=== PATIENT | male | born 1950 | race Caucasian/White ===

== ENCOUNTER 2016-04-08 11:44 | Outpatient (CLI) | payer MEDICARE ==
[~2016-04-08] VITALS: Ht 182.9 cm; Wt 1070.0 kg
--- NOTE | ~2016-04-08 | HEMODYNAMI ---
PATIENT:CURT KERN MEDICAL RECORD: [id number] : 54 LOCATION:[facility] ADMISSION DATE: 04/08/16 Generatedon:04/08/201614:23 Patient name: CURT KERN Patient #: [id number] SSN: D OB: 1950 Date of study: 04/08/2016 Page: Of Hemodynamic Procedure Report Patient Data Patient Demographics Procedure consent was obtained First Name: CURT Gender: Male Last Name: ERLIN : 1950 Middle Initial: BENIGNO Age: 65 year(s) Patient #: [id number] Race: Unknown Additional ID: [id number] Contact details [address]: [address] [place] [address] State: [place] City: [place] Zip code: [address] Admission Admission Data Admission Date: 04/08/2016 Admission Time: 11:44 Height (in.): 72 BSA: 2.28 (m2) Height (cm.): 182.88 BMI: 31.74 (kg/m2) Weight (lbs.): 234 Weight (kg.): 106.14 Lab Results Lab Result Date: 04/08/2016 Lab Result Time: 0:00 Biochemistry Name Units Result Min Max BUN mg/dl 11 --(-*--)-- 7 18 Creatinine mg/dl 0.9 --(-*--)-- 0.6 1.3 CBC Name Units Result Min Max Hemoglobin g/dl 13.4 -*(----)-- 13.5 17.5 Procedure Procedure Types Cath Procedure Diagnostic Procedure LHC LHC w/Coronaries Procedure Description Procedure Date Procedure Date: 04/08/2016 Procedure Start Time: 14:10 Procedure End Time: 14:23 Procedure Staff Name Function Chase Calderón MD Performing Physician Magaly Miner RT Scrub Alecia Marshall RN Nurse Nino Rae RN Fashion Coordinator Ike Ellis RT Monitor Procedure Data Cath Procedure Fluoroscopy Diagnostic fluoroscopy Total fluoroscopy Time: 3.3 time: 3.3 min min Diagnostic fluoroscopy Total fluoroscopy dose: dose: 313.67 mGy 313.67 mGy Contrast Material Contrast Material Type Amount (ml) Isovue 300 71 Entry Location Entry Primary Successful Side Size Upsize Upsize Entry Closure Villalpando ccessful Closure Location (Fr) 1 (Fr) 2 (Fr) Remarks Device Remarks Radial Right 6 Fr Mechanical artery Short Compression Estimated blood loss: 10 ml Diagnostic catheters Device Type Used For End Catheter Placement Terumo 5Fr Yonatan 110cm Coronary catheter Angiography Procedure Complications No complications Procedure Medications Medication Administration Route Dosage Oxygen NC 2 l/min Benadryl I.V. 50 mg Lidocaine 2% added to field 20 Heparin Flush Bag added to field 2 bags (1000units/500ml NS) 0.9% NaCl I.V. 100 ml/hr Versed I.V. 1 mg Fentanyl I.V. 50 mcg Versed I.V. 1 mg Fentanyl I.V. 50 mcg Radial Cocktail I.A. 1 syringe (Verapomil 2mg/Nitro 400mcg/Heparin 1500units) Versed I.V. 1 mg Fentanyl I.V. 50 mcg Hemodynamics Rest BSA: 2.28 (m2) HGB: 13.4 (g/dl) O2 Consumption: Estimated: 271.86 (ml/min) O2 Co nsumption indexed: Estimated:119.24 (ml/min/m) Heart Rate: 76 (bpm) Pressure Samples Time Site Value (mmHg) Purpose Heart Use Rate(bpm) 14:14 LV 109/0,9 Snapshot 67 14:15 AO 88/50(68) Pullback 60 14:15 LV 106/10,16 Pullback 60 14:18 AO 93/64(78) Snapshot 85 Gradients Valve Time Site 1 Site 2 Mean SEP/DFP Peak To Heart Use (mmHg) (sec/min) Peak Rate (mmHg) (bpm) Aortic 14:15 LV AO 10 8 18 60 106/10,16 88/50(68) Calculations Valve P-P Mean Valve Index Valve Source Name Gradient Area Flow (cm2) Aortic 18 10 18 10 Snapshots Pre Cath Intra NCS Post Cath Vital Signs Time Heart Resp SPO2 NIBP (mmHg) Rhythm Pain Sedation Rate (ipm) (%) Status Level (bpm) 13:59:28 33 17 94 130/84(115) NSR 0 (11) 10(A) , No pain 14:03:52 63 17 95 130/80(108) NSR 0 (11) 10(A) , No pain 14:08:17 59 19 96 121/73(93) NSR 0 (11) 10(A) , No pain 14:12:31 36 17 95 122/83(104) NSR 0 (11) 9(A) , No pain 14:16:55 37 16 95 125/69(79) NSR 0 (11) 9(A) , No pain 14:21:17 41 19 94 111/69(85) NSR 0 (11) 10(A) , No pain Medications Time Medication Route Dose Verified Delivered Reason Notes Effectiveness by by 13:59:31 Oxygen NC 2 l/min Chase Santosie used for [facility]. Betito Marshall RN procedure 13:59:37 Benadryl I.V. 50 mg Chase Santosie used for [facility] Betito Marshall RN procedure 13:59:47 Lidocaine 2% added 20ml Chase Chase for local to vial [facility] anesthetic field MD VALENTINE 13:59:53 Heparin Flush added 2 bags Chase Chase used for Bag to [facility] procedure (1000units/500ml field MD VALENTINE NS) 14:00:03 0.9% NaCl I.V. 100 Chase Buffie Per ml/hr [facility] Betito Marshall RN physician 14:02:47 Versed I.V. 1 mg Chase Buffie for sedation [facility] Betito Marshall RN, MD 14:02:53 Fentanyl I.V. 50 mcg Chase Buffie for sedation [facility]. Betito Marshall RN, MD 14:10:25 Versed I.V. 1 mg Hcase Buffie for sedation [facility] Betito Marshall RN, MD 14:10:29 Fentanyl I.V. 50 mcg Chase Buffie for sedation [facility] Betito Marshall RN, MD 14:13:31 Radial Cocktail I.A. 1 Chase Chase for (Verapomil syringe [facility] vasodilation 2mg/Nitro MD VALENTINE 400mcg/Heparin 1500units) 14:16:39 Versed I.V. 1 mg Chase Buffie for sedation [facility]. Betito Marshall RN, MD 14:16:44 Fentanyl I.V. 50 mcg Chase Santosie for sedation [facility] Betito Marshall RN, MD Procedure Log Time Note 13:20:06 Nino Rae RN sent for patient. Start room use. 13:44:44 Diagnostic Cath Status : Elective 13:45:12 Time tracking: Regular hours 13:45:15 Plan of Care:Hemodynamics will remain stable., Cardiac rhythm will remain stable., Comfort level will be maintained., Respiratory function will remain adequate., Patient/ family verbilizes understanding of procedure., Procedure tolerated without complication., Recovers from procedure without complications.. 13:46:06 Patient received from Outpatients to [facility] 2 Alert and oriented. Tansferred to table in Supine position. 13:48:12 Warm blankets applied, and zulay hugger turned on for patient comfort. 13:48:12 Correct patient and procedure confirmed by team. 13:48:13 Signed procedure consent form obtained from patient. 13:48:14 ECG and BP/O2 sat monitors applied to patient. 13:58:16 Vital chart was started 13:58:17 Baseline sample Acquired. 13:58:21 Rhythm: sinus rhythm 13:58:23 Full Disclosure recording started 13:59:27 H&P Date Dictated: 03/10/2016 Within 30 days and on chart., H&P Addendum completed by physician on day of procedure. (MUST COMPLETE FOR ALL OUTPATIENTS). 13:59:28 Pre-procedure instructions explained to patient. 13:59:29 Pre-op teaching completed and patient verbalized understanding. 13:59:30 Family in waiting room. 13:59:31 Oxygen 2 l/min NC was given by Alecia Marshall RN; used for procedure; 13:59:32 Patient NPO since Midnight. 13:59:35 Is the patient allergic to Iodine/contrast media? No. 13:59:37 Benadryl 50 mg I.V. was given by Alecia Marshall RN; used for procedure; 13:59:43 Is patient on blood thinner?No 13:59:47 Lidocaine 2% 20ml vial added to field was given by Chase Calderón MD; for local anesthetic; 13:59:52 ACC The patient was administered the following blood thiners within the last 24 hours: None 13:59:53 Heparin Flush Bag (1000units/500ml NS) 2 bags added to field was given by Chase Calderón MD; used for procedure; 13:59:56 Patient diabetic? Yes. 13:59:57 If diabetic: On Metformin? Yes 14:00:00 If on Metformin: Last Dose? 04/06/2016 14:00:03 0.9% NaCl 100 ml/hr I.V. was given by Alecia Marshall RN; Per physician; 14:00:04 Previous problem with sedation/anesthesia? No ? 14:00:05 Snore? Yes 14:00:10 Sleep apnea? No 14:00:11 Deviated septum? No 14:00:12 Opens mouth fully? Yes 14:00:13 Sticks out tongue? Yes 14:00:15 Airway obstruction? No ? 14:00:18 Dentures? No ? 14:00:21 Pre procedure: right dorsailis pedis pulse 1+ Palpable, but thready & weak; easily obliterated 14:00:24 Modified Jasiel's test Ulnar < 7 seconds 14:00:26 Patient pain scale 0/10 ?. 14:00:32 IV patent on arrival in left forearm with 0.9% NaCl at [facility]. 14:00:34 Lab results completed and on chart. 14:00:39 Right Radial & Right Groin area was prepped with chlora-prep and draped in sterile fashion 14:00:41 Alarms reviewed by R. N. 14:00:42 Sharps counted by scrub and verified by R.N. 14:00:44 --------ALL STOP TIME OUT------ 14:00:44 Final Timeout: patient, procedure, and site verified with staff and physician. All members of the team are in agreement. 14:00:50 Right Radial & Right Groin site verified by team. 14:01:01 Physical assessment completed. ASA score P 2 - A patient with mild systemic disease as per Chase Calderón MD. 14:01:03 Sedation plan: IV Moderate Sedation Versed, Fentanyl 14:01:55 Use device set Radial Dx 14:01:56 Tegaderm 4 x 4 opened to sterile field. 14:01:57 Acist Manifold opened to sterile field. 14:01:57 Acist Hand Control opened to sterile field. 14:01:59 Acist Syringe opened to sterile field. 14:01:59 Cardinal Cath Pack opened to sterile field. 14:01:59 Bag Decanter opened to sterile field. 14:02:00 Terumo 6Fr Slender Glidesheath opened to sterile field. 14:02:01 St Tian 260cm J .035 wire opened to sterile field. 14:02:47 Versed 1 mg I.V. was given by Alecia Marshall RN; for sedation; 14::53 Fentanyl 50 mcg I.V. was given by Alecia Marshall RN; for sedation; 14::46 Lab Result : BUN 11 mg/dl 14::46 Lab Result : Hemoglobin 13.4 g/dl 14::46 Lab Result : Creatinine 0.9 mg/dl 14::49 Zero performed for pressure channel P1 14::52 Zero performed for pressure channel P1 14::57 Zero performed for pressure channel P1 14:08:00 Zero performed for pressure channel P1 14::19 Procedure started. 14:: Versed 1 mg I.V. was given by Alecia Marshall RN; for sedation; 14:: Local anesthetic to right radial artery with Lidocaine 2% by Chase Calderón MD.INITIAL ACCESS ONLY 14::29 Fentanyl 50 mcg I.V. was given by Alecia Marshall RN; for sedation; 14::49 Patient Height : 182.88 cm 14:10:50 Patient Weight : 106.14 kg 14:11:00 ACC Patient presents with Stable Angina CCS Anginal Class 2--Slight limitation of ordinary activity. 14:11:50 ACCPatient has been prescribed/administered the following anti-anginal medication within the last 2 weeks: Calcium Channel Blockers, TERRIE-Inhibitor 14:12:10 A 6 Fr Short sheath was inserted into the Right Radial artery 14:12:29 A Ripstone 5Fr Yonatan 110cm catheter was advanced over the wire and used for Coronary Angiography. 14:13:31 Radial Cocktail (Verapomil 2mg/Nitro 400mcg/Heparin 1500units) 1 syringe I.A. was given by Chase Calderón MD; for vasodilation; 14:14:06 LV angiography performed. 14:14:07 LV gram done using JEROME 14:14:12 LV hemodynamics recorded. 14:14:17 Injector settings: Ml/sec: 7, Volume: 15, 14:14:42 EF : 55 % 14:15:38 RCA angiography performed. 14:16:39 Versed 1 mg I.V. was given by Alecia Marshall RN; for sedation; 14:16:44 Fentanyl 50 mcg I.V. was given by Alecia Marshall RN; for sedation; 14:17:30 LCA angiography performed. 14:18:43 Catheter removed. 14:18:50 Terumo TR Band Standard opened to sterile field. 14:19:00 Contrast amount:Isovue 300 71ml. 14:19:19 Procedure ended.(Physican Out) 14:19:21 Sheath removed intact; hemostasis achieved with Mechanical Compression to the Right Radial artery. 14:19:25 TR band inflated with 12cc of air. 14:19:26 Insertion/operative site no bleeding no hematoma. 14:19:29 Post Procedure Pulses reassessed and unchanged 14:19:33 Post-procedure physical assessment completed. ASA score P 2 - A patient with mild systemic disease as per Chase Calderón MD. 14:19:34 Post procedure rhythm: unchanged. 14:19:36 Estimated blood loss: 10 ml 14:19:38 Post procedure instruction explained to patient.Patient verbalizes understanding. 14:19:39 Patient needs reinforcement of post procedure teaching. 14:19:45 Procedure Complication : No complications 14:20:00 Procedure and supply charges have been captured, reviewed, submitted and are correct. 14:21:29 Fluoroscopy time 03.30 minutes. 14:21:34 Fluoroscopy dose: 313.67 mGy 14:21:34 Flurop Dose total: 313.67 14:21:36 Sharps counted by scrub and verified by R.N. 14:23:14 Vital chart was stopped 14:23:14 See physician's report for complete and final results. 14:23:17 Report given to Outpatients. 14:23:19 Patient transfered to Outpatients with Stretcher. 14:23:21 Procedure ended. 14:23:21 Full Disclosure recording stopped 14:23:26 End room use (Document Last) Device Usage Item Name Manufacture Quantity Catalog Hospital Part Current Minimal Lot# / Number Charge Number Stock Stock Serial# Code Tegaderm 4 3M 1 [id number] 872691 026418 5 x 4 Acist Acist 1 82878 460464 618734 038751 5 [employer] Warrant[employer] Acist Hand Acist 1 79693 468059 505417 124273 5 TechDevils Acist Acist 1 61012 246063 744938 051232 20 Syringe [employer] Cardinal Cardinal 1 [id number] 407195 79046 503270 5 Cath Pack Health Bag Microtek 1 2002S 470103 90378 451221 5 [employer]an[employer]. Terumo 6Fr Terumo 1 [id number] 593665 947696 026640 [address] St Tian 1 950951 448288 729955 764024 30 260cm J .035 wire Terumo 5Fr Terumo 1 40-4607 018696 849926 103669 5 Yonatan 110cm catheter Terumo TR Terumo 1 [id number] 210108 551221 998073 40 Band Standard Signature Audit Vancleave Stage Time Signature Unsigned Intra-Procedure 04/08/2016 Ike Ellis 2:23:43 PM RT(R) Signatures Monitor : Ike Ellis RT Signature : Date : Time : [id number] [place] [address]
[2016-04-08 12:52] LABS: BASOPHILS 0.4 % (0.0-2.0); EOSINOPHILS 2.7 % (0-7); HEMATOCRIT 38.8 % (42.0-54.0); HEMOGLOBIN 13.4 g/dL (13.5-17.5); IMMATURE GRANULOCYTES 0.2 % (0-5); MCH 34.2 pg (26.0-34.0); MCHC 34.5 g/dL (31.0-37.0); MEAN PLATELET VOLUME 11.3 fL (7.4-10.4); MONOCYTES 11.8 % (2-11); NEUTROPHILS 43.9 % (40-80); PLATELET COUNT 151 10x3/uL (130-400); RBC 3.92 10x6/uL (4.20-6.10); RDW 13.1 % (11.5-14.5); WBC 4.8 10x3/uL (4.8-10.8)
[2016-04-08] MEDS ORDERED: ZANAFLEX4 MG PO (13:05)
[2016-04-08] MEDS ORDERED: VITAMIN B-122500 MCG PO (13:06)
[2016-04-08] MEDS ORDERED: GLUCOPHAGE1000 MG PO (13:06)
[2016-04-08] MEDS ORDERED: BAYER CHEWABLE81 MG PO (13:06)
[2016-04-08] MEDS ORDERED: PRINIVIL20 MG PO (13:07)
[2016-04-08] MEDS ORDERED: OMEPRAZOLE20 M1 PO (13:07)
[2016-04-08] MEDS ORDERED: VITAMIN D31000 UNIT PO (13:08)
[2016-04-08] MEDS ORDERED: NORVASC5 MG PO (13:08)
[2016-04-08 13:10] VITALS: Ht 182.9 cm; Wt 1070.0 kg
[2016-04-08 13:18] LABS: CALC OSMOLALITY 279 mosm/kg (275-300); CHLORIDE - SERUM 104 mmol/L (98-107); CREATININE - SERUM 0.9 mg/dL (0.6-1.3); GLUCOSE 157 mg/dL (74-106); POTASSIUM - SERUM 3.9 mmol/L (3.5-5.1); SODIUM 139 mmol/L (136-145); UREA NITROGEN 11 mg/dL (7-18); eGFR NON AFRICAN AMERICAN > 90 mL/min (90-120)
--- NOTE | 2016-04-08 15:34 | NUR ---
1445 AWAKE, TALKING WITH FAMILY AT BEDSIDE. RATE 84 W PVC/PAC AND BUNDLE BRANCH BLOCK...(BASELINE FOR PATIENT AND REASON FOR CATH). ROOM AIR WITH NO DISTRESS. R WRIST TR BAND C/D/I WITH NO HEMATOMA OR BLEEDING. PULSES PALP X 4. FAMILY AT BEDSIDE. 1530 SITTING UP IN BED EATING TURKEY SANDWICH, HEART RATE CONTINUES NOTED EARLIER. R WRIST TR BAND C/D/I WITH NO HEMATOMA OR BLEEDING. FAMILY AT BEDSIDE.
--- NOTE | 2016-04-08 16:05 | NUR ---
PIV REMOVED FROM LEFT FOREARM WITH BANDAID APPLIED. 4CC AIR REMOVED FROM R WRIST TR BAND WITH NO BLEEDING. WILL MONITOR CLOSELY. UP TO BEDSIDE TO DRESS WITH ASSIST FROM .
--- NOTE | 2016-04-08 16:17 | NUR ---
REMAINDER OF AIR REMOVED FROM R WRIST TR BAND. TR BAND REMOVED AND DRESSED WITH TEGADERM. D/C INSTRUCTIONS DISCUSSED WITH PATIENT AND AT BEDSIDE. DISCUSSED HOLDING METFORMIN FOR 48HRS AFTER PROCEDURE. WHEELED DOWN VIA WHEELCHAIR BY LOCKER ROOM ATTENDANT TEAM.
--- NOTE | 2016-04-12 14:09 | OP ---
PATIENT NAME: CURT KERN MEDICAL RECORD: [id number] :54 LOCATION:D.CAT ADMISSION DATE: SURGEON: JATINDER WOLFE MD DATE OF OPERATION: 04/08/2016 PROCEDURE: Left heart catheterization, selective coronary angiography, right radial artery approach. CATHETERS: A 5-Irish sheath, 5/4 left and right Shweta, 5/4 pig. The procedure was well tolerated. The patient returned to the anderson. Sheath was removed. TR band was placed. FINDINGS: Left ventriculography in 30-degree JEROME view: Normal wall motion, normal systolic function. CORONARY ANATOMY: Left main: Left main is free of disease. LAD: Free of disease in the diagonal system. CIRCUMFLEX: Free of disease in the marginal system. RIGHT CORONARY ARTERY: Dominant artery, gives rise to PDA, free of disease. IMPRESSION: Normal left ventricular systolic function. Normal coronary anatomy. TRANSINT:[id number] Voice Confirmation ID: [id number] DOCUMENT ID: [id number] JATINDER WOLFE MD at 1409 CC: [id number] DICTATION DATE: 04/08/16 1425 CONDOMINIUM MANAGER: 04/08/16 1701 DEP CLI 04/08/16 [id number] [place] [address]
== END 2016-04-08 16:19 | disposition home or self-care (01) ==
LOC: D.CATH 11:44
PROVIDERS: Internal Medicine Interventional Cardiology
DX: I20.9 Angina pectoris, unspecified (principal); R94.39 Abnormal result of other cardiovascular function study

== ENCOUNTER → 2016-07-12 09:40 | Outpatient (CLI) | payer MEDICARE ==
[~2016-07-12 09:40] MED LIST: BAYER CHEWABLE81 MG PO; GLUCOPHAGE1000 MG PO; NORVASC5 MG PO; OMEPRAZOLE20 M1 PO; PRINIVIL20 MG PO; VITAMIN B-122500 MCG PO; VITAMIN D31000 UNIT PO; ZANAFLEX4 MG PO
== END | disposition home or self-care (01) ==
LOC: D.CT 09:40
DX: R51 Headache (principal)

== ENCOUNTER → 2017-06-01 09:48 | Outpatient (CLI) | payer OTHER ==
[2016-04-08 13:10] VITALS: BMI 320.2
== END | disposition home or self-care (01) ==
LOC: D.RAD 09:48
DX: Z02.71 Encounter for disability determination (principal)

== ENCOUNTER → 2017-10-21 12:41 | Outpatient (CLI) | payer MEDICARE, BC ==
[2016-04-08 13:10] VITALS: BMI 320.2
[~2017-10-21 12:41] MED LIST changes: +BACLOFEN10 MG PO; +BETAPACE 80 MG80 MG PO; +BRILINTA90 MG PO; +COZAAR50 MG PO; +ELIQUIS5 MG PO; +FUROSEMIDE40 MG PO; +K-TAB10 MEQ PO; +PRAVASTATIN SOD10 MG PO
== END | disposition home or self-care (01) ==
LOC: D.CT 12:41
DX: R06.00 Dyspnea, unspecified (principal)

== ENCOUNTER 2017-11-22 10:47 | Outpatient (CLI) | payer MEDICARE, BC ==
[~2017-11-22] VITALS: Ht 182.9 cm; Wt 106.8 kg
--- NOTE | ~2017-11-22 | HEMODYNAMI ---
PATIENT:CURT KERN MEDICAL RECORD: [id number] : 54 LOCATION:[facility] ADMISSION DATE: 11/22/17 Generatedon:11/22/201714:27 Patient name: CURT KERN Patient #: [id number] SSN: D OB: 1950 Date of study: 11/22/2017 Page: Of Hemodynamic Procedure Report Patient Data Patient Demographics Procedure consent was obtained First Name: CURT Gender: Male Last Name: ERLIN : 1950 Middle Initial: BENIGNO Age: 67 year(s) Patient #: [id number] Race: Unknown Additional ID: [id number] Contact details Address: [address] [place] [address] State: [place] City: [place] Zip code: [address] Past Medical History Allergies: No known allergies Admission Admission Data Admission Date: 11/22/2017 Admission Time: 10:47 Height (in.): 6 BSA: 0.38 (m2) Height (cm.): 15.24 BMI: 4609.01 (kg/m2) Weight (lbs.): 236 Weight (kg.): 107.05 Lab Results Lab Result Date: 11/22/2017 Lab Result Time: 0:00 Biochemistry Name Units Result Min Max BUN mg/dl 15 --(--*-)-- 7 18 Creatinine mg/dl 1.1 --(--*-)-- 0.6 1.3 CBC Name Units Result Min Max Hemoglobin g/dl 14.4 --(*---)-- 13.5 17.5 Procedure Procedure Types Cath Procedure Diagnostic Procedure C [facility] w/Coronaries Sedation Charges Moderate Sedation up to 30 minutes PCI Procedure Coronary Stent Coronary Stent Initial Procedure Description Procedure Date Procedure Date: 11/22/2017 Procedure Start Time: 13:54 Procedure End Time: 14:27 Procedure Staff Name Function Chase Bravo MD Performing Physician Yane Glez RT Monitor Magaly Miner RT Scrub Alecia Marshall RN Nurse Procedure Data Cath Procedure Fluoroscopy Diagnostic fluoroscopy Total fluoroscopy Time: time: 11.2 min 11.2 min Diagnostic fluoroscopy Total fluoroscopy dose: dose: 1802 mGy 1802 mGy Contrast Material Contrast Material Type Amount (ml) Isovue 300 123 Entry Location Entry Primary Successful Side Size Upsize Upsize Entry Closure [place] ccessful Closure Location (Fr) 1 (Fr) 2 (Fr) Remarks Device Remarks Radial Right 6 Fr Mechanical artery Short Compression Estimated blood loss: 10 ml Diagnostic catheters Device Type Used For End Catheter Placement DIAGNOSTIC [place] 110cm 5 LV Angiography Fr catheter ([id number]) DIAGNOSTIC [place] 110cm 5 Left Coronary Fr catheter ([id number]) Angiography DIAGNOSTIC [place] 110cm 5 LV Angiography Fr catheter ([id number]) DIAGNOSTIC AR 1 MOD 5Fr Right Coronary catheter ([id number]) Angiography Procedure Complications No complications Procedure Medications Medication Administration Route Dosage Oxygen etCO2 Nasal cannula 2 l/min Lidocaine 2% added to field 20 Heparin Flush Bag added to field 2 bags (1000units/500ml NS) 0.9% NaCl I.V. 100 ml/hr Versed I.V. 2 mg Fentanyl I.V. 100 mcg Radial Cocktail I.A. 1 syringe (Verapomil 2mg/Nitro 400mcg/Heparin 1500units) Versed I.V. 1 mg Fentanyl I.V. 50 mcg Heparin Bolus I.V. 4000 units Integrilin (Bolus I.V. 9.5 ml 2mg/ml) Versed I.V. 1 mg Fentanyl I.V. 50 mcg Brilinta P.O. 180 mg Hemodynamics Rest BSA: 0.38 (m2) HGB: 14.4 (g/dl) O2 Consumption: Estimated: 43.28 (ml/min) O2 Con sumption indexed: Estimated:113.89 (ml/min/m) Heart Rate: 63 (bpm) Pressure Samples Time Site Value (mmHg) Purpose Heart Use Rate(bpm) 14:02 LV 83/8,14 Snapshot 74 Gradients Valve Time Site Site Mean SEP/DFP Peak To Heart Use 1 2 (mmHg) (sec/min) Peak Rate (mmHg) (bpm) Aortic 14:02 LV AO 83 Snapshots Pre Cath Intra NCS Post Cath Vital Signs Time Heart Resp SPO2 NIBP Rhythm Pain Sedation Rate (ipm) (%) (mmHg) Status Level (bpm) 13:31:30 77 30 95 125/81(96) A-Fib 0 (11) 10(A) , No pain 13:35:44 83 14 93 116/70(87) A-Fib 0 (11) 10(A) , No pain 13:39:54 90 21 94 110/71(84) A-Fib 0 (11) 10(A) , No pain 13:44:04 88 19 93 109/67(80) A-Fib 0 (11) 10(A) , No pain 13:48:10 75 17 94 106/74(87) A-Fib 0 (11) 10(A) , No pain 13:52:14 70 18 92 102/78(86) A-Fib 0 (11) 10(A) , No pain 13:56:18 90 12 93 96/67(74) A-Fib 0 (11) 10(A) , No pain 14:00:25 77 13 91 100/53(77) A-Fib 0 (11) 9(A) , No pain 14:04:31 69 20 93 101/60(84) A-Fib 0 (11) 9(A) , No pain 14:08:39 88 16 92 94/58(80) A-Fib 0 (11) 9(A) , No pain 14:12:45 90 17 92 89/56(67) A-Fib 0 (11) 9(A) , No pain 14:16:44 100 18 93 104/69(91) A-Fib 0 (11) 9(A) , No pain 14:20:52 87 16 93 116/60(87) A-Fib 0 (11) 9(A) , No pain 14:25:00 77 26 94 92/79(86) A-Fib 0 (11) 10(A) , No pain Medications Time Medication Route Dose Verified Delivered Reason Not es Effectiveness by by 13:38:59 Oxygen etCO2 2 l/min Chase Alston [facility] 13:39:07 Lidocaine 2% added 20ml Chase Stone for local to vial [facility] anesthetic field MD VALENTINE 13:39:13 Heparin Flush added 2 bags Chase Stone used for Bag to [facility] procedure (1000units/500ml field MD VALENTINE NS) 13:39:22 0.9% NaCl I.V. 100 Chase Alston Per physician ml/hr St Betito Marshall RN, MD 13:42:24 Versed I.V. 2 mg Chase Santosie for sedation St Betito Marshall RN, MD 13:42:30 Fentanyl I.V. 100 mcg Chase Santosie for sedation St Betito Marshall RN, MD 13:59:40 Radial Cocktail I.A. 1 Chase Stone for (Verapomil syringe St Betito Bravo vasodilation 2mg/Nitro MD VALENTINE 400mcg/Heparin 1500units) 13:59:48 Versed I.V. 1 mg Chase Alston for sedation St Betito Marshall RN, MD 13:59:52 Fentanyl I.V. 50 mcg Chase Alston for sedation St Betito Marshall RN, MD 14:05:44 Heparin Bolus I.V. 4000 Chase Alston for KEN IFIED units St Betito Marshall RN anticoagulation WITH DR MD KOEHLER 14:06:52 Integrilin I.V. 9.5 ml Chase Alston for WAS DALILA (Bolus 2mg/ml) St Betito Marshall RN antiplatelet 0.5 ML MD therapy OF VIAL 14:11:33 Versed I.V. 1 mg Chase Alston for sedation St Betito Marshall RN, MD 14:11:37 Fentanyl I.V. 50 mcg Chase Alston for sedation St Betito Marshall RN, MD 14:23:09 Brilinta P.O. 180 mg Chase Alston for St Betito Marshall RN antiplatelet therapy Procedure Log Time Note 13:18:42 Time tracking: Regular hours (M-F 7:00 - 5:00) 13:18:45 Plan of Care:Hemodynamics will remain stable., Cardiac rhythm will remain stable., Comfort level will be maintained., Respiratory function will remain adequate., Patient/ family verbilizes understanding of procedure., Procedure tolerated without complication., Recovers from procedure without complications.. 13:18:48 Alecia Marshall RN sent for patient. Start room use. 13:18:49 Signed procedure consent form obtained from patient. 13:18:57 H&P Date Dictated: 10/27/2017 Within 30 days and on chart., H&P Addendum completed by physician on day of procedure. (MUST COMPLETE FOR ALL OUTPATIENTS). 13:19:02 Patient allergic to No known allergies 13:25:20 Patient received from Pre/Post Procedure Room to CCL 2 Alert and oriented. Tansferred to table in Supine position. 13:25:21 Warm blankets applied, and zulay hugger turned on for patient comfort. 13:25:22 Correct patient and procedure confirmed by team. 13:25:23 ECG and BP/O2 sat monitors applied to patient. 13:30:27 Vital chart was started 13:33:40 Baseline sample Acquired. 13:33:51 Rhythm: atrial fibrillation 13:33:52 Full Disclosure recording started 13:33:53 Pre-procedure instructions explained to patient. 13:33:54 Pre-op teaching completed and patient verbalized understanding. 13:33:57 Family in patients room. 13:33:59 Patient NPO since Midnight. 13:34:02 Is the patient allergic to Iodine/contrast media? No. 13:34:04 Is patient on blood thinner?Yes 13:35:22 RAMA HURTADO 11.21 13:35:24 Patient diabetic? Yes. 13:35:26 If diabetic: On Metformin? Yes 13:35:28 If on Metformin: Last Dose? 11/21/2017 13:35:38 Previous problem with sedation/anesthesia? No ? 13:35:40 Snore? No 13:35:41 Sleep apnea? No 13:35:43 Deviated septum? No 13:35:43 Opens mouth fully? Yes 13:35:45 Sticks out tongue? Yes 13:35:47 Airway obstruction? No ? 13:35:49 Dentures? No ? 13:35:51 Modified Jasiel's test Ulnar < 7 seconds 13:35:55 Patient pain scale 0/10 ?. 13:35:59 IV patent on arrival in left hand with 0.9% NaCl at O. 13:37:04 Lab Result : BUN 15 mg/dl 13:37:04 Lab Result : Hemoglobin 14.4 g/dl 13:37:04 Lab Result : Creatinine 1.1 mg/dl 13:37:06 Lab results completed and on chart. 13:37:09 Right Radial & Right Groin area was prepped with chlora-prep and draped in sterile fashion 13:37:15 Alarms reviewed by R. N. 13:37:15 Sharps counted by scrub and verified by R.N. 13:37:18 Use device set Radial Dx or PCI 13:37:19 ACIST Syringe (88791) opened to sterile field. 13:37:20 Bag Decanter (2001S) opened to sterile field. 13:37:21 ACIST Hand Control (62517) opened to sterile field. 13:37:22 ACIST Manifold (95732) opened to sterile field. 13:37:22 Tegaderm 4 x 4 (1626W) opened to sterile field. 13:37:23 Medline Cath Pack ([id number]) opened to sterile field. 13:37:24 DIAGNOSTIC WIRE .035 260cm J wire (584310) opened to sterile field. 13:37:25 MBrace Wrist Support ([id number]) opened to sterile field. 13:37:26 SHEATH 6Fr Prelude Radial ([id number]) opened to sterile field. 13:38:59 Oxygen 2 l/min etCO2 Nasal cannula was administered by Alecia Marshall RN; used for procedure; 13:39:07 Lidocaine 2% 20ml vial added to field was administered by Chase Bravo MD; for local anesthetic; 13:39:13 Heparin Flush Bag (1000units/500ml NS) 2 bags added to field was administered by Chase Bravo MD; used for procedure; 13:39:22 0.9% NaCl 100 ml/hr I.V. was administered by Alecia Marshall RN; Per physician; 13:41:10 --------ALL STOP TIME OUT------ 13:41:10 Final Timeout: patient, procedure, and site verified with staff and physician. All members of the team are in agreement. 13:41:13 Right Radial & Right Groin site verified by team. 13:41:15 Physical assessment completed. ASA score P 2 - A patient with mild systemic disease as per Chase Bravo MD. 13:41:19 Sedation plan: IV Moderate Sedation Medication:Versed, Fentanyl 13:42:24 Versed 2 mg I.V. was administered by Alecia Marshall RN; for sedation; 13:42:30 Fentanyl 100 mcg I.V. was administered by Alecia Marshall RN; for sedation; 13:46:12 Zero performed for pressure channel P1 13:49:36 Patient Height : 6 inches 13:49:41 Patient Weight : 236 lbs 13:54:21 Procedure started. 13:54:27 Local anesthetic to right radial artery with Lidocaine 2% by Chase Bravo MD.INITIAL ACCESS ONLY 13:57:19 A 6 Fr Short sheath was inserted into the Right Radial artery 13:58:00 A DIAGNOSTIC [place] 110cm 5 Fr catheter ([id number]) was advanced over the wire and used for LV Angiography. UNABLE TO CROSS VALVE 13:59:40 Radial Cocktail (Verapomil 2mg/Nitro 400mcg/Heparin 1500units) 1 syringe I.A. was administered by Chase Bravo MD; for vasodilation; 13:59:48 Versed 1 mg I.V. was administered by Alecia Marshall RN; for sedation; 13:59:52 Fentanyl 50 mcg I.V. was administered by Alecia Marshall RN; for sedation; 14:00:21 A DIAGNOSTIC [place] 110cm 5 Fr catheter ([id number]) was advanced over the wire and used for Left Coronary Angiography. 14:02:33 A DIAGNOSTIC [place] 110cm 5 Fr catheter (675456) was advanced over the wire and used for LV Angiography. 14:02:38 LV gram done using JEROME 14:02:39 LV hemodynamics recorded. 14:02:45 Injector settings: Ml/sec: 5, Volume: 15, 14:02:59 Catheter removed. 14:03:13 A DIAGNOSTIC AR 1 MOD 5Fr catheter ([id number]) was advanced over the wire and used for Right Coronary Angiography. 14:03:[address] [facility]IS PCI 14:03:59 INFLATOR Merit BasixCompak ([id number]) opened to sterile field. 14:04:00 WHISPER 300cm guide wire ([id number]) opened to sterile field. 14:04:51 GUIDE 6FR EBU 3.5 catheter ([id number]) opened to sterile field. 14:05:14 Catheter removed. 14:05:44 Heparin Bolus 4000 units I.V. was administered by Alecia Marshall RN; for anticoagulation; VERIFIED WITH DR KOEHLER 14:06:52 Integrilin (Bolus 2mg/ml) 9.5 ml I.V. was administered by Alecia Marshall RN; for antiplatelet therapy; WASTED 0.5 ML OF VIAL 14:07:18 6 Fr EBU 3.5 guide catheter was inserted over the wire 14:10:45 WHISPER wire advanced. 14:11:33 Versed 1 mg I.V. was administered by Alecia Marshall RN; for sedation; 14:11:37 Fentanyl 50 mcg I.V. was administered by Alecia Marshall RN; for sedation; 14:19:45 Place stent Inflation Number: 1 A INTEGRITY OTW 3.0 X 15 stent ([id number]) was prepped and advanced across the 2nd Ob Rocio. The stent was deployed at 14 YUMIKO for 0:25 (min:sec). 14:20:10 Stent catheter was removed intact over wire. 14:20:11 Wire removed. 14:20:12 Guide catheter removed. 14:20:21 Sheath removed intact; hemostasis achieved with Mechanical Compression to the Right Radial artery. 14:20:46 Procedure ended.(Physican Out) 14:21:04 TR BAND Large ([id number]) opened to sterile field. 14:21:43 Fluoroscopy time 11.20 minutes. 14:21:47 Fluoroscopy dose: 1802 mGy 14:21:47 Flurop Dose total: 1802 14:21:52 Contrast amount:Isovue 300 123ml. 14:21:56 Sharps counted by scrub and verified by R.N. 14:21:59 TR band inflated with 12cc of air. 14:22:00 Insertion/operative site no bleeding no hematoma. 14:22:14 Post right radial artery:stable, clean and dry 14:22:15 Post Procedure Pulses reassessed and unchanged 14:22:18 Post-procedure physical assessment completed. ASA score P 2 - A patient with mild systemic disease as per Chase Bravo MD. 14:22:21 Post procedure rhythm: unchanged. 14:22:23 Estimated blood loss: 10 ml 14:22:29 Post procedure instruction explained to patient.Patient verbalizes understanding. 14:22:30 Patient needs reinforcement of post procedure teaching. 14:22:52 Procedure type changed to Cath procedure, Diagnostic procedure, LHC, LHC w/Coronaries, Sedation Charges, Moderate Sedation up to 30 minutes, PCI procedure, Coronary Stent, Coronary Stent Initial 14:23:02 Procedure Complication : No complications 14:23:04 See physician's report for complete and final results. 14:23:09 Brilinta 180 mg P.O. was administered by Alecia Marshall RN; for antiplatelet therapy; 14:23:32 Procedure and supply charges have been captured, reviewed, submitted and are correct. 14:27:12 Vital chart was stopped 14:27:15 Report given to Pre/Post Procedure Room. 14:27:18 Patient transfered to Pre/Post Procedure Room with Stretcher. 14:27:28 Procedure ended. 14:27:28 Full Disclosure recording stopped 14:27:31 End room use (Document Last) Intervention Summary Intervention Notes Time ActionType Lesion and Equipment Action# Pressure Duration Attributes Used 14:19:45 Place stent 2nd Ob Orcio INTEGRITY 1 14 00:25 OTW 3.0 X 15 stent ([id number]) Device Usage Item Name Manufacture Quantity Catalog Number Hospital Part Current M inimal Lot# / Charge Number Stock Stock Serial# Code ACIST Syringe Acist 1 20076 880773 101729 657637 2 0 (31132) Medical Systems scrible Bag Decanter Microtek 1 2001S 189616 84214 017839 5 (2001S) Medical Inc. ACIST Hand Acist 1 63469 994912 869899 343760 5 Control (47453) Medical Systems Inc ACIST Manifold Acist 1 26551 024058 168779 631533 5 (78996) Medical Systems Inc Tegaderm 4 x 4 3M 1 1626W 382330 195070 637015 5 (1626W) Medline Cath Cardinal 1 [id number] 162184 63978 278724 5 Pack Health ([id number]) DIAGNOSTIC WIRE St Tian 1 987967 696553 553027 893326 3 0 .035 260cm J wire (061776) MBrace Wrist Advanced 1 140-0250-00 483383 21189 036134 5 Support Vascular ([id number]) Dynamics SHEATH 6Fr Merit 1 [id number] 907532 976304 844473 5 Prelude Radial Medical ([id number]) DIAGNOSTIC Terumo 1 40-1263 204159 564931 900087 5 [place] 110cm 5 Fr catheter (725985) DIAGNOSTIC AR 1 Cardinal 1 [id number] 960511 599962 131760 1 5 MOD 5Fr Health catheter (903418O) INFLATOR Merit Merit 1 RP0420 489771 168403 271350 1 5 SmartStudy.com Medical (AD8512) WHISPER 300cm Edwards 1 [id number] 623767 209016 525376 5 guide wire Vascular (1736664IU) GUIDE 6FR EBU Medtronic 1 [id number] 170614 32197 393538 3 3.5 catheter ([id number]) INTEGRITY OTW Medtronic 1 [id number] 229767 612121 2 [id number] 3.0 X 15 stent ([id number]) TR BAND Large Terumo 1 [id number] 338151 480959 515713 4 0 ([id number]) Signature Audit [place] Stage Time Signature Unsigned Intra-Procedure 11/22/2017 Magaly 2:27:43 PM Counts RT(R) Signatures Monitor : Yane Glez Signature : RT Date : Time : [place] [id number] [place] [address]
--- NOTE | ~2017-11-22 | OP ---
PATIENT NAME: CURT KERN MEDICAL RECORD: [id number] :54 LOCATION:D.[facility] ADMISSION DATE: SURGEON: JATINDER WOLFE MD DATE OF OPERATION: 11/22/2017 PROCEDURE: Left heart catheterization, selective coronary angiography, plus PTCA stent. CATHETERS: Radial sheath, [place] catheter, diagnostic. We proceeded with PTCA stenting after the procedure was finished. FINDINGS: Left ventriculography in 30-degree JEROME view shows somewhat of a global hypokinesis. Overall function reduced 40% to 45%. CORONARY ANATOMY: LEFT MAIN: Left main is free of disease. LAD: Luminal irregularities, no flow obstructive disease. CIRCUMFLEX: Left dominant system with circumflex and right PDA. There is an OM2 with 80% stenosis in its mid portion. RIGHT CORONARY ARTERY: Rudimentary. IMPRESSION: Single-vessel disease, correlating nicely with nuclear study. PLAN: Intervention momentarily. DESCRIPTION OF PROCEDURE: Using an indwelling radial sheath, EBU 3.5 guiding catheter provided good guide catheter support followed by a Whisper wire, placed across the 80% stenosed OM2 down to this portion of the vessel. Stent deployed was a 3.0 x 15 mm Integrity nondrug-eluting stent secondary to oral anticoagulant use as well as. This was inflated up to 14 atmospheres for 45 seconds. Final angiography shows excellent resolution of 80% stenosis, no significant residual. ALEYDA flow was 3 throughout the procedure. Integrilin was used in the case. Sheath closed with TR band. Brilinta was loaded in the lab. TRANSINT:[id number] Voice Confirmation ID: [id number] DOCUMENT ID: [id number] JATINDER WOLFE MD at 1449 CC: [id number] DICTATION DATE: 11/22/17 1429 PROFESSOR OF GRAPHIC DESIGN: 11/22/17 1455 DEP CLI 11/22/17 [place] [id number]
[~2017-11-22 10:47] MED LIST changes: -BACLOFEN10 MG PO; -BETAPACE 80 MG80 MG PO; -BRILINTA90 MG PO; -COZAAR50 MG PO; -ELIQUIS5 MG PO; -FUROSEMIDE40 MG PO; -K-TAB10 MEQ PO; -PRAVASTATIN SOD10 MG PO
[2017-11-22] MEDS ORDERED: COZAAR50 MG PO (11:05)
[2017-11-22] MEDS ORDERED: PRAVASTATIN SOD10 MG PO (11:05)
[2017-11-22] MEDS ORDERED: BETAPACE 80 MG80 MG PO (11:08)
[2017-11-22] MEDS ORDERED: ELIQUIS5 MG PO (11:08)
[2017-11-22] MEDS ORDERED: FUROSEMIDE40 MG PO (11:08)
[2017-11-22] MEDS ORDERED: BACLOFEN10 MG PO (11:09)
[2017-11-22] MEDS ORDERED: K-TAB10 MEQ PO (11:09)
[2017-11-22 11:13] VITALS: BP 116/70; Ht 182.9 cm; Wt 106.8 kg
[2017-11-22 11:42] LABS: BASOPHILS 0.2 % (0-2); EOSINOPHILS 3.4 % (0-7); HEMATOCRIT 40.4 % (42.0-54.0); HEMOGLOBIN 14.4 g/dL (13.5-17.5); IMMATURE GRANULOCYTES 0.3 % (0-5); LYMPHOCYTES 18.9 % (15-50); MCH 34.3 pg (26.0-34.0); MCHC 35.6 g/dL (31.0-37.0); MCV 96.2 fL (80.0-100.0); MEAN PLATELET VOLUME 13.3 fL (7.4-10.4); MONOCYTES 14.2 % (2-11); PLATELET COUNT 167 10x3/uL (130-400); RDW 13.6 % (11.5-14.5); WBC 9.1 10x3/uL (4.8-10.8)
[2017-11-22 12:33] LABS: ANION GAP 14.6 mmol/L (8-16); CALCIUM 7.7 mg/dL (8.5-10.1); CARBON DIOXIDE 26.3 mmol/L (21.0-32.0); CREATININE - SERUM 1.1 mg/dL (0.6-1.3); POTASSIUM - SERUM 3.9 mmol/L (3.5-5.1)
[2017-11-22] MEDS ORDERED: BRILINTA90 MG PO (14:46)
== END 2017-11-22 18:30 | disposition home or self-care (01) ==
LOC: D.CATH 10:47
PROVIDERS: Internal Medicine Interventional Cardiology
DX: I25.110 Atherosclerotic heart disease of native coronary artery with unstable angina pectoris (principal)

== ENCOUNTER 2017-12-07 11:18 | Outpatient (CLI) | payer MEDICARE, BC ==
[~2017-12-07] VITALS: Ht 182.9 cm; Wt 104.5 kg
[~2017-12-07 11:18] MED LIST changes: +BACLOFEN10 MG PO; +BETAPACE 80 MG80 MG PO; +BRILINTA90 MG PO; +COZAAR50 MG PO; +ELIQUIS5 MG PO; +FUROSEMIDE40 MG PO; +K-TAB10 MEQ PO; +PRAVASTATIN SOD10 MG PO
[2017-12-07 11:51] VITALS: BP 138/84; Ht 182.9 cm; Wt 104.5 kg
== END 2017-12-07 13:30 | disposition home or self-care (01) ==
LOC: D.CATH 11:18 → D.RT 12-14 09:00
DX: I48.91 Unspecified atrial fibrillation (principal); Z01.810 Encounter for preprocedural cardiovascular examination; Z01.812 Encounter for preprocedural laboratory examination; Z01.811 Encounter for preprocedural respiratory examination; Z53.9 Procedure and treatment not carried out, unspecified reason

== ENCOUNTER → 2017-12-14 08:34 | Outpatient (CLI) | payer MEDICARE, BC ==
[2017-12-07 11:51] VITALS: BMI 31.2
[2017-12-15 10:20] LABS: IMMUNOGLOBULIN A 326 mg/dL (61-437); IMMUNOGLOBULIN G 958 mg/dL (700-1600); IMMUNOGLOBULIN M 81 mg/dL (20-172)
[2017-12-15 12:17] LABS: ANA REFLEX - DIRECT Negative (Negative)
[2017-12-16 14:22] LABS: ANCA - ANTIMYELOPEROXIDASE <9.0 U/mL (0.0-9.0); ANCA - ANTIPROTEINASE 3 <3.5 U/mL (0.0-3.5); ANCA - ATYPICAL <1:20 titer (Neg:<1:20); ANCA - CYTOPLASMIC <1:20 titer (Neg:<1:20); ANCA - PERINUCLEAR <1:20 titer (Neg:<1:20)
[2017-12-17 15:14] LABS: IMMUNOGLOBULIN E 177 IU/mL (0-100)
== END | disposition home or self-care (01) ==
LOC: D.RT 08:34
PROVIDERS: Internal Medicine Pulmonary Disease
DX: J44.9 Chronic obstructive pulmonary disease, unspecified (principal); J84.10 Pulmonary fibrosis, unspecified

== ENCOUNTER → 2018-06-19 09:51 | Outpatient (CLI) | payer MEDICARE, BC ==
[2017-12-07 11:51] VITALS: BMI 31.2
== END | disposition home or self-care (01) ==
LOC: D.RAD 09:51
PROVIDERS: ATTEND Internal Medicine Pulmonary Disease
DX: J84.10 Pulmonary fibrosis, unspecified (principal)

== ENCOUNTER → 2018-12-13 14:01 | Outpatient (CLI) | payer MEDICARE, BC ==
[2017-12-07 11:51] VITALS: BMI 31.2
== END | disposition home or self-care (01) ==
LOC: D.RT 11-10 11:00 → D.CT 11-21 15:30 → D.RT 12-12 10:00
PROVIDERS: ATTEND Internal Medicine Pulmonary Disease
DX: J84.10 Pulmonary fibrosis, unspecified (principal)

== ENCOUNTER → 2020-07-10 09:36 | Outpatient (CLI) | payer MEDICARE, BC ==
[2017-12-07 11:51] VITALS: BMI 31.2
--- NOTE | 2020-07-11 17:14 | EC ---
PATIENT:CURT KERN DATE OF SERVICE: 07/10/20 SEX: M MEDICAL RECORD: [id number] DATE OF : 54 LOCATION:D[facility] AGE OF PATIENT: 69 ADMISSION DATE: 07/10/20 REFERRING PHYSICIAN: INTERPRETING PHYSICIAN: JATINDER WOLFE MD ECHOCARDIOGRAM REPORT ECHO CHARGES 4 ECHO COMPLETE Date: 07/10/20 CLINICAL DIAGNOSIS: CAD/ATRIAL FIB, ASSESS EF , MITRAL AND TRICUSPID REGURG ECHOCARDIOGRAPHIC MEASUREMENTS (adult normal given) AC root (d.<3.7cm) 3.8 cm LV Septum d (<1.2 cm> 1.1 cm Valve Excursion 1.8 cm LV Septum (systole) 1.3 cm Left Atria (s.<4.0cm> 4.3 cm LVPW d(<1.2cm) 1.2 cm RV (d.<2.3cm) 4.0 cm LVPW (sytole) 1.7 cm LV diastole(<5.6CM) 5.0 cm MV E-F(>70mm/sec) cm LV systole 3.4 cm LVOT Diameter 2.3 cm MV exc.(>10mm) 1.8 cm Est.ejection fraction (50-75%) % DOPPLER: LVIT cm/sec A 112.0cm/sec E 106.0 cm/sec LA cm/sec RVSP 51 mmHg LVOT 114 cm/sec AOP1/2T m/s Asc. Ao 145 cm/sec RVOT 63 cm/sec RA cm/sec PA 116 cm/sec AV Gradient Peak 8.46 mmHg AV Mean 4.70 mmHg AV Area 3.4 cm MV Gradient Peak 6.02 mmHg MV Mean 3.25 mmHg MV Area cm COMMENTS: Senior Service Aide: 2 KIRA IBARRA Branch Examiner: 3 Dr. Calderón TAPE# PACS Pericardial Effusion N DATE OF SERVICE: Adequate 2D, color-flow imaging, spectral Doppler, and M-Mode FINDINGS: No LVH. LV internal dimension is normal. Wall motion is normal. EF is greater than or equal to 55%. Aortic valve is tricuspid. No evidence of stenosis by Doppler interrogation. Left atrium is mildly dilated at 4.3 cm. Mitral valve shows no prolapse. Mild MR. Right-sided chambers are grossly normal. Moderate TR. RV systolic pressure is estimated at 51 mmHg via the continuity equation. ECHOCARDIOGRAM REPORT [id number] CURT KERN TRANSINT:[id number] Voice Confirmation ID: [id number] DOCUMENT ID: [id number] JATNIDER WOLFE MD at 1714 CC: [id number] DICTATION DATE: 07/11/2037 STRIPE MARKER: 07/11/20 1318 DEP CLI 07/10/20 [place] [id number]
== END | disposition home or self-care (01) ==
LOC: D.HCCECHO 09:36
PROVIDERS: ATTEND Internal Medicine Interventional Cardiology
DX: I25.10 Atherosclerotic heart disease of native coronary artery without angina pectoris (principal)

== ENCOUNTER → 2020-09-24 09:51 | Outpatient (CLI) | payer MEDICARE, BC ==
[2017-12-07 11:51] VITALS: BMI 31.2
== END | disposition home or self-care (01) ==
LOC: D.LAB 09:51
PROVIDERS: ATTEND Internal Medicine Pulmonary Disease
DX: Z11.52 Encounter for screening for COVID-19 (principal)

== ENCOUNTER → 2020-09-29 08:18 | Outpatient (CLI) | payer MEDICARE, BC ==
[2017-12-07 11:51] VITALS: BMI 31.2
== END | disposition home or self-care (01) ==
LOC: D.CT 08:18 → D.RT 09:00
PROVIDERS: ATTEND Internal Medicine Pulmonary Disease
DX: J44.9 Chronic obstructive pulmonary disease, unspecified (principal); J84.10 Pulmonary fibrosis, unspecified